=== PATIENT | female | born 1995 | race Two or more races ===

== ENCOUNTER 2022-04-19 23:49 | Emergency (ER) | payer OTHER ==
[~2022-04-19] VITALS: Ht 162.6 cm; Wt 101.2 kg
[2022-04-20] MEDS ORDERED: PRENA1 TRUE CO1 EACH PO (00:01)
[2022-04-20] MEDS ORDERED: ZYRTEC10 MG PO (02:23)
== END 2022-04-20 02:28 | disposition home or self-care (01) ==
LOC: ER 23:49
DX: O98.512 Other viral diseases complicating pregnancy, second trimester (principal); U07.1 COVID-19; Z3A.14 14 weeks gestation of pregnancy

== ENCOUNTER 2022-06-24 13:45 | Emergency (ER) | payer OTHER ==
[~2022-06-24] VITALS: Ht 160 cm; Wt 102.5 kg
[~2022-06-24 13:45] MED LIST: PRENA1 TRUE CO1 EACH PO; ZYRTEC10 MG PO
== END 2022-06-24 14:56 | disposition home or self-care (01) ==
LOC: ER 13:45
DX: O26.892 Other specified pregnancy related conditions, second trimester (principal); Z3A.23 23 weeks gestation of pregnancy; T78.1XXA Other adverse food reactions, not elsewhere classified, initial encounter; X58.XXXA Exposure to other specified factors, initial encounter; R21 Rash and other nonspecific skin eruption

== ENCOUNTER 2022-07-18 10:08 | Outpatient (CLI) | payer OTHER | END 2022-07-18 19:55 | disposition home or self-care (01) | LOC: OBS/DEL 10:08 | PROVIDERS: ATTEND Specialist | DX: O26.892 Other specified pregnancy related conditions, second trimester (principal); R10.2 Pelvic and perineal pain; Z3A.27 27 weeks gestation of pregnancy ==

== ENCOUNTER 2022-07-28 13:32 | Emergency (ER) | payer OTHER ==
[~2022-07-28] VITALS: Ht 160 cm; Wt 100.7 kg
== END 2022-07-28 15:40 | disposition home or self-care (01) ==
LOC: ER 13:32
DX: Z57.2 Occupational exposure to dust (principal); Z33.1 Pregnant state, incidental; Z3A.30 30 weeks gestation of pregnancy; Z20.822 Contact with and (suspected) exposure to COVID-19

== ENCOUNTER 2022-10-05 13:00 | Inpatient (IN) | payer OTHER ==
[~2022-10-05] VITALS: Ht 160 cm; Wt 4.1 kg
== END 2022-10-15 15:15 | disposition home or self-care (01) | DRG 788 ==
LOC: OB/GYN 10-13 05:59 → LDR 10-13 05:59 → OB/GYN 10-13 16:07
PROVIDERS: ADMIT Specialist; ATTEND Specialist
PROC: 4A1HXCZ Monitoring of Products of Conception, Cardiac Rate, External Approach (ICD-10-PCS; 2022-10-13)
PROC: 10D00Z1 Extraction of Products of Conception, Low, Open Approach (ICD-10-PCS; principal; 2022-10-13 15:30)
DX: O33.5XX0 Maternal care for disproportion due to unusually large fetus, not applicable or unspecified (principal); O36.63X0 Maternal care for excessive fetal growth, third trimester, not applicable or unspecified; O99.824 Streptococcus B carrier state complicating childbirth; Z3A.39 39 weeks gestation of pregnancy; Z37.0 Single live birth; Z20.822 Contact with and (suspected) exposure to COVID-19

== ENCOUNTER 2023-05-04 22:26 | Emergency (ER) | payer OTHER ==
[~2023-05-04] VITALS: Ht 160 cm; Wt 100.2 kg
[2023-05-04 23:33] LABS: HEMATOCRIT 33.5 % (36.0-45.00); HEMOGLOBIN 11.8 g/dL (12.0-15.00); MEAN CELL VOLUME 78.9 fL (80.00-100.00); MEAN CORPUSCULAR HEMOGLOBIN 27.8 pg (27.00-32.0); MEAN CORPUSCULAR HGB CONC 35.2 g/dl (32.0-36.0); PLATELET COUNT 257 K/uL (150-450); RED BLOOD COUNT 4.25 M/uL (4.00-6.00); RED CELL DISTRIBUTION WIDTH 14.4 % (11.5-14.5)
[2023-05-05 00:39] LABS: BILIRUBIN TOTAL 0.24 mg/dL (0.3-1.2); CALCIUM 8.9 mg/dL (8.5-10.1); CREATININE SERUM 0.5 mg/dL (0.55-1.02); GFR 149.14; GLOBULINA 3.5 G/DL (2.4-3.5); POTASSIUM 4.03 mEq/L (3.5-5.1); TOTAL PROTEIN 6.5 gm/dL (6.4-8.2)
== END 2023-05-05 04:25 | disposition home or self-care (01) ==
LOC: ER 22:26
PROVIDERS: General Practice
DX: O20.8 Other hemorrhage in early pregnancy (principal); Z3A.15 15 weeks gestation of pregnancy; Z91.013 Allergy to seafood

== ENCOUNTER 2023-10-03 12:10 | Inpatient (IN) | payer OTHER ==
[~2023-10-03] VITALS: Ht 68.6 cm; Wt 3.6 kg
[2023-10-03 12:42] LABS: HEMATOCRIT 35.4 % (36.0-45.00); HEMOGLOBIN 12.7 g/dL (12.0-15.00); MEAN CELL VOLUME 81.1 fL (80.00-100.00); MEAN CORPUSCULAR HEMOGLOBIN 29.1 pg (27.00-32.0); MEAN CORPUSCULAR HGB CONC 35.8 g/dl (32.0-36.0); PLATELET COUNT 255 K/uL (150-450); RED BLOOD COUNT 4.36 M/uL (4.00-6.00); RED CELL DISTRIBUTION WIDTH 14.2 % (11.5-14.5)
[2023-10-03 12:43] LABS: URINE BACTERIA 343.9 uL (0.0-1933); URINE EPITHELIAL CELLS 10.9 uL (0.0-38.8); URINE RBC 2.5 uL (0.0-20.8); URINE WBC 20.2 uL (0.0-23.2)
[2023-10-03 12:49] LABS: URINE CAST 0.15 uL (0.0-1.40)
[2023-10-03 12:50] LABS: URINE APPEARANCE Clear; URINE BILIRRUBIN Negative (NEGATIVE); URINE BLOOD Negative; URINE COLOR Yellow; URINE GLUCOSE Negative (NEGATIVE); URINE KETONE 80 (NEGATIVE); URINE LEUKOCYTE Trace; URINE NITRATE Negative; URINE PROTEIN Negative (NEGATIVE)
[2023-10-03 12:58] LABS: INR 0.95; PARTIAL THROMBOPLASTIN TIME 27.2 SECONDS (22.0-34.0)
[2023-10-03 13:52] LABS: ALBUMIN 3.2 gm/dL (3.4-5.0); BILIRUBIN TOTAL 0.56 mg/dL (0.3-1.2); CALCIUM 9.3 mg/dL (8.5-10.1); CREATININE SERUM 0.5 mg/dL (0.55-1.02); GFR 149.14; GLOBULINA 3.5 G/DL (2.4-3.5); POTASSIUM 4.33 mEq/L (3.5-5.1); TOTAL PROTEIN 6.7 gm/dL (6.4-8.2)
[2023-10-16] MEDS ORDERED: OXYTOCIN 10 UNITS/ML VIAL ONE ×3 (14:09→19:34)
[2023-10-16] MEDS ORDERED: ERYTHROMYCIN BASE 1 GM TUBE OP ONE ×2 (14:09→19:21)
[2023-10-16] MEDS ORDERED: CEFAZOLIN SODIUM 1,000 MG VIAL ONE (19:22)
[2023-10-16] MEDS ORDERED: MEPERIDINE HCL/PF 50 MG/ML VIAL IM PRN (20:45)
[2023-10-16] MEDS ORDERED: PROMETHAZINE HCL 50 MG/ML AMPUL IM PRN (20:45)
[2023-10-16] MEDS ORDERED: RINGERS SOLUTION,LACTATED 1,000 ML IV SCH (20:45)
[2023-10-16] MEDS ORDERED: CEFAZOLIN SODIUM 1,000 MG VIAL IV ONE (22:00)
[2023-10-16] MEDS ORDERED: MORPHINE SULFATE 4 MG/ML VIAL IV ONE (22:45)
[2023-10-17] MEDS ORDERED: CEFAZOLIN SODIUM 1,000 MG VIAL IV SCH (02:00)
[2023-10-17 04:31] LABS: HEMATOCRIT 34.5 % (36.0-45.00); HEMOGLOBIN 11.7 g/dL (12.0-15.00); MEAN CELL VOLUME 81.1 fL (80.00-100.00); MEAN CORPUSCULAR HEMOGLOBIN 27.6 pg (27.00-32.0); PLATELET COUNT 215 K/uL (150-450); RED BLOOD COUNT 4.25 M/uL (4.00-6.00); RED CELL DISTRIBUTION WIDTH 14.3 % (11.5-14.5)
[2023-10-17] MEDS ORDERED: ACETAMINOPHEN 500 MG GEL..CAP PO PRN (08:00)
[2023-10-17] MEDS ORDERED: OxyCODONE HCL/APAP UD (PERCOCET) PO PRN (08:00)
[2023-10-18] MEDS ORDERED: SIMETHICONE 125 MG CAPSULE PO ONE (23:30)
[2023-10-19] MEDS ORDERED: IBUPROFEN800 MG PO (07:45)
== END 2023-10-19 14:14 | disposition home or self-care (01) | DRG 788 ==
LOC: LDR 10-16 07:00 → O/R 10-16 15:58 → OB/GYN 10-16 21:41
PROVIDERS: ADMIT Specialist; ATTEND Specialist
PROC: 4A1HXCZ Monitoring of Products of Conception, Cardiac Rate, External Approach (ICD-10-PCS; 2023-10-16)
PROC: 10D00Z1 Extraction of Products of Conception, Low, Open Approach (ICD-10-PCS; principal; 2023-10-16 07:00)
DX: O34.211 Maternal care for low transverse scar from previous cesarean delivery (principal); Z3A.39 39 weeks gestation of pregnancy; Z37.0 Single live birth; Z20.822 Contact with and (suspected) exposure to COVID-19